=== PATIENT | male | born 1990 ===

== ENCOUNTER → 2024-10-08 | Outpatient (CLI) | payer BC ==
--- NOTE | 2024-10-08 09:23 | CT ---
EXAMINATION TYPE: CT sinus wo con DATE OF EXAM: 10/08/2024 COMPARISON: NONE CLINICAL INDICATION: Male, 34 years old with history of J32.0 chronic sinusitis, Chronic sinusitis, r t side worse, TECHNIQUE: CT scan of the sinuses performed without contrast, patient injected with mL of .(none if empty) CT DLP: 532.50 mGycm, Automated exposure control for dose reduction was used. TECHNIQUE: CT scan of the sinuses is performed without contrast, axial images are obtained, coronal r eformatted images are also reviewed. FINDINGS: Moderate mucosal thickening in the bilateral maxillary sinuses more prominent on the right. Mild to moderate mucosal thickening anterior ethmoid sinuses bilaterally. Possible 9 mm posterior le ft ethmoid sinus mucous retention cyst or polyp axial image 28 and possible 10 mm posterior right max illary mucous retention cyst or polyp axial image 14. Mild mucosal thickening left sphenoid sinus. Mo derate mucosal thickening and patchy fluid in the left frontal sinus The ostiomeatal complex is narro wed on the left due to antral mucosal thickening. The ostiomeatal complex is significantly narrowed a nd/or occluded on the right. Nasal septum slightly deviated to right of midline. Visualized portion of mastoid air cells show no abnormal opacification. The globes are intact bilate rally. IMPRESSION: Acute on chronic paranasal sinus disease is present as detailed above. [facility], , 10/08/2024 9:20 AM
== END | disposition home or self-care (01) ==
LOC: RADCTMAIN 08:23
PROVIDERS: ATTEND Otolaryngology
DX: J32.0 Chronic maxillary sinusitis (principal); J01.80 Other acute sinusitis
CPT/HCPCS: 70486